=== PATIENT | male | born 1975 | race Caucasian/White ===

== ENCOUNTER 2016-09-12 12:15 | Inpatient (IN) ==
--- NOTE | 2016-09-12 12:34 | Emergency Department Note ---
Disposition Clinical Impression: Suicidal ideation Disposition: Admitted As Inpatient Referrals: NO,PCP [Non-Partnered Physician] - Forms: ED Satisfaction Letter Psych HPI - General Chief Complaint: ED Psychiatric Symptoms Stated Complaint: i am going to hurt myself Source: patient Mode of arrival: ambulatory Limitations: no limitations Nursing Notes Reviewed: Yes Vital Signs Reviewed: Yes - History of Present Illness Pt complaint: suicidal ideation, feels depressed Onset (ago): day(s) (2) Duration: constant History of similar episodes: Yes Improves with: none Worsens with: none Context: significant life stressor Alleged intoxication: No Associated Psychiatric Symptoms: depression, suicidal ideation, auditory hallucinations Associated symptoms: Denies: vomiting Traumatic symptoms: denies traumatic injury Treatments prior to arrival: none Self harm or harm to others: admits thoughts of self harm, other (took 4 klonopin 1mg this morning) - Related Data Previous Rx's Medication Instructions Recorded Hydrocodone/Acetaminophen [Maud 1 tab PO Q6H PRN #10 tab 12/10/14 10-325 Tablet] Allergies Allergy/AdvReac Type Severity Reaction Status Date / Time No Known Allergies Allergy Verified 12/10/14 11:30 All systems ED: reviewed and negative except as stated. Constitutional: Denies: fever, chills Psychiatric: Reports: depression, suicidal thoughts, auditory hallucinations Past Medical History - Past Medical History Source: patient, obtained from family, nursing notes reviewed Medical history: Reports: diabetes, hyperlipidemia, hypertension Surgical history: Reports: other Psychiatric history: Reports: anxiety, depression, prior suicide attempt - Social History Smoking Status: Never smoker Smokeless Tobacco Status: No Alcohol use: Reports: none Drug use: Reports: none Physical Exam - General Limitations: no limitations General appearance: anxious, other - Head Head exam: atraumatic, normocephalic, normal inspection - Eye Eye exam: Present: normal appearance, PERRL, EOMI - ENT ENT exam: normal exam, normal oropharynx, mucous membranes moist - Neck Neck exam: Present: normal inspection, full ROM, trachea midline - Chest Chest inspection: Present: normal inspection, symmetric chest wall rise - Respiratory Respiratory exam: Present: normal lung sounds bilaterally - Cardiovascular Cardiovascular exam: Present: regular rate, normal rhythm, normal heart sounds - Abdominal Exam Abdominal exam: Present: soft, Non-Tender. Absent: tenderness, distention, guarding, rebound, rigidity - Back Exam Back exam: Present: normal inspection, full ROM. Absent: tenderness - Psychiatric Psychiatric exam: Present: depressed, suicidal ideation Course Vital Signs Temperature 97.5 F L 09/12/16 12:16 Pulse Rate 159 09/12/16 12:16 Respiratory Rate 16 09/12/16 12:16 Blood Pressure 224/195 09/12/16 12:16 O2 Sat by Pulse Oximetry 96 09/12/16 12:16 Temperature 97.5 F L 09/12/16 12:16 Pulse Rate 159 09/12/16 12:16 Respiratory Rate 16 09/12/16 12:16 Blood Pressure 224/195 09/12/16 12:16 O2 Sat by Pulse Oximetry 96 09/12/16 12:16 Oxygen Delivery Oxygen Delivery Room Air Psych - Lab Data Result diagrams: 09/12/16 13:01 09/12/16 13:01 Lab Results 09/12/16 09/12/16 09/12/16 Range/Units 13:01 13:01 13:01 WBC 8.8 (4.3-11.1) K/mcL RBC 5.96 H (4.19-5.50) M/mcL Hgb 16.2 (12.9-16.9) g/dL Hct 48.2 (37.5-50.1) % MCV 80.9 L (83.0-100.0) fL MCH 27.2 L (28.0-33.3) pg MCHC 33.6 (31.6-35.5) g/dL RDW 12.1 (11.5-14.5) % Plt Count 267 (140-400) K/mcL MPV 10.3 (9.4-12.4) fL Immature Gran % 0.6 (0-4) % Seg Neutrophils % 73.1 % Lymphocytes % 17.2 % Monocytes % 8.4 % Eosinophils % 0.0 % Basophils % 0.7 % Neutrophils # 6.4 (1.6-8.9) K/mcL Lymphocytes # 1.5 (0.6-4.6) K/mcL Monocytes # 0.7 (0.0-1.3) K/mcL Eosinophils # 0.0 (0.0-0.6) K/mcL Basophils # 0.1 (0.0-0.2) K/mcL Sodium 139 (136-145) mEq/L Potassium 4.0 (3.5-4.5) mEq/L Chloride 102 (98-109) mEq/L Carbon Dioxide 23 (19-29) mEq/L BUN 19 (8-26) mg/dL Creatinine 1.17 (0.72-1.25) mg/dL Est GFR ( Amer) > 60 (> 60) Est GFR (Non-Af Amer) > 60 (> 60) BUN/Creatinine Ratio 16 (6-26) Glucose 266 H (70-99) mg/dL Est Mean Plasma Glucose 217 mg/dl Hemoglobin A1c 9.2 H ( - 5.6) % Calculated Osmolality 300 (280-300) Calcium 9.9 (8.6-10.8) mg/dL TSH 1.022 (0.350-4.840) mcIU/mL Urine Color (Yellow) Urine Clarity (Clear) Urine pH (5.0-8.0) pH Units Ur Specific [place] (1.010-1.025) Urine Protein (Neg-Trace) mg/dL Urine Glucose (UA) (Normal) mg/dL Urine Ketones (Negative) mg/dL Urine Blood (Negative) Urine Nitrite (Negative) Urine Bilirubin (Negative) Urine Urobilinogen (Normal) mg/dL Ur Leukocyte Esterase (Negative) Urine Microscopic RBC (0-3) per hpf Urine Microscopic WBC (0-3) per hpf Ur Squamous Epith Cells (None-Few) per lpf Urine Bacteria (None-Few) per hpf Hyaline Casts (None-Few) per lpf Salicylates < 5.0 L (15-30) mg/dL Urine Opiates Screen (Ktpmtb=632) ng/mL Acetaminophen < 1.0 L (10-30) mcg/mL Ur Barbiturates Screen (Sixhjs=904) ng/mL Ur Phencyclidine Scrn (Cutoff=25) ng/mL Ur Amphetamines Screen (Mdskef=2162) ng/mL U Benzodiazepines Scrn (Rnptjf=070) ng/mL Urine Cocaine Screen (Cutoff= 300) ng/mL U Marijuana (THC) Screen (Cutoff = 50) ng/mL Ethyl Alcohol < 10 (0-10) mg/dL 09/12/16 09/12/16 Range/Units 13:10 13:10 WBC (4.3-11.1) K/mcL RBC (4.19-5.50) M/mcL Hgb (12.9-16.9) g/dL Hct (37.5-50.1) % MCV (83.0-100.0) fL MCH (28.0-33.3) pg MCHC (31.6-35.5) g/dL RDW (11.5-14.5) % Plt Count (140-400) K/mcL MPV (9.4-12.4) fL Immature Gran % (0-4) % Seg Neutrophils % % Lymphocytes % % Monocytes % % Eosinophils % % Basophils % % Neutrophils # (1.6-8.9) K/mcL Lymphocytes # (0.6-4.6) K/mcL Monocytes # (0.0-1.3) K/mcL Eosinophils # (0.0-0.6) K/mcL Basophils # (0.0-0.2) K/mcL Sodium (136-145) mEq/L Potassium (3.5-4.5) mEq/L Chloride (98-109) mEq/L Carbon Dioxide (19-29) mEq/L BUN (8-26) mg/dL Creatinine (0.72-1.25) mg/dL Est GFR ( Amer) (> 60) Est GFR (Non-Af Amer) (> 60) BUN/Creatinine Ratio (6-26) Glucose (70-99) mg/dL Est Mean Plasma Glucose mg/dl Hemoglobin A1c ( - 5.6) % Calculated Osmolality (280-300) Calcium (8.6-10.8) mg/dL TSH (0.350-4.840) mcIU/mL Urine Color Yellow (Yellow) Urine Clarity Clear (Clear) Urine pH 5.5 (5.0-8.0) pH Units Ur Specific [place] > 1.030 H (1.010-1.025) Urine Protein Trace (Neg-Trace) mg/dL Urine Glucose (UA) >=1000 H (Normal) mg/dL Urine Ketones 80 H (Negative) mg/dL Urine Blood Negative (Negative) Urine Nitrite Negative (Negative) Urine Bilirubin Negative (Negative) Urine Urobilinogen Normal (Normal) mg/dL Ur Leukocyte Esterase Negative (Negative) Urine Microscopic RBC 0-3 (0-3) per hpf Urine Microscopic WBC 0-3 (0-3) per hpf Ur Squamous Epith Cells Few (None-Few) per lpf Urine Bacteria None Seen (None-Few) per hpf Hyaline Casts None Seen (None-Few) per lpf Salicylates (15-30) mg/dL Urine Opiates Screen Negative (Zpigmm=403) ng/mL Acetaminophen (10-30) mcg/mL Ur Barbiturates Screen Negative (Kqmkgf=899) ng/mL Ur Phencyclidine Scrn Negative (Cutoff=25) ng/mL Ur Amphetamines Screen Negative (Ncatrr=9978) ng/mL U Benzodiazepines Scrn Positive H (Caenaj=728) ng/mL Urine Cocaine Screen Negative (Cutoff= 300) ng/mL U Marijuana (THC) Screen Negative (Cutoff = 50) ng/mL Ethyl Alcohol (0-10) mg/dL Psychiatric Medical Clearance - Medical Clearance Checklist Medical History: No Social History Section defined Current Vitals: Last Vital Signs Temp 97.5 F L 09/12/16 12:16 Pulse 159 09/12/16 12:16 Resp 16 09/12/16 12:16 BP 224/195 09/12/16 12:16 Pulse Ox 96 09/12/16 12:16 Psychiatric Lab Panel: Drug Levels and Toxicity 09/12/16 09/12/16 13:01 13:10 Urine Opiates Screen Negative Acetaminophen < 1.0 L Ur Barbiturates Screen Negative Ur Phencyclidine Scrn Negative Ur Amphetamines Screen Negative U Benzodiazepines Scrn Positive H Urine Cocaine Screen Negative U Marijuana (THC) Screen Negative Ethyl Alcohol < 10 Abnormal Labs: Abnormal lab results RBC 5.96 M/mcL (4.19-5.50) H 09/12/16 13:01 MCV 80.9 fL (83.0-100.0) L 09/12/16 13:01 MCH 27.2 pg (28.0-33.3) L 09/12/16 13:01 Glucose 266 mg/dL (70-99) H 09/12/16 13:01 Hemoglobin A1c 9.2 % (-5.6) H 09/12/16 13:01 Ur Specific [place] > 1.030 (1.010-1.025) H 09/12/16 13:10 Urine Glucose (UA) >=1000 mg/dL (Normal) H 09/12/16 13:10 Urine Ketones 80 mg/dL (Negative) H 09/12/16 13:10 Salicylates < 5.0 mg/dL (15-30) L 09/12/16 13:01 Acetaminophen < 1.0 mcg/mL (10-30) L 09/12/16 13:01 U Benzodiazepines Scrn Positive ng/mL (Syzhhh=517) H 09/12/16 13:10 Statement of Medical Clearance: I have evaluated the patient, reviewed diagnostic information, and certify that the patient's medical condition is sufficiently stable that transfer to the psychiatric unit does not pose a significant risk of deterioration.
[2016-09-12 13:19] LABS: Basophils # 0.1 K/mcL (0.0-0.2); Basophils % 0.7 %; Hematocrit 48.2 % (37.5-50.1); Hemoglobin 16.2 g/dL (12.9-16.9); Immature Granulocytes % 0.6 % (0-4); Lymphocytes # 1.5 K/mcL (0.6-4.6); Lymphocytes % 17.2 %; Mean Corpuscular HGB Conc 33.6 g/dL (31.6-35.5); Mean Corpuscular Hemoglobin 27.2 pg (28.0-33.3); Mean Corpuscular Volume 80.9 fL (83.0-100.0); Mean Platelet Volume 10.3 fL (9.4-12.4); Monocytes # 0.7 K/mcL (0.0-1.3); Monocytes % 8.4 %; Neutrophils # 6.4 K/mcL (1.6-8.9); Platelet Count 267 K/mcL (140-400); Red Blood Count 5.96 M/mcL (4.19-5.50); Red Cell Distribution Width 12.1 % (11.5-14.5); Segmented Neutrophils % 73.1 %
[2016-09-12 13:27] LABS: Bilirubin,Urine Negative (Negative); Blood,Urine Negative (Negative); Clarity,Urine Clear (Clear); Color,Urine Yellow (Yellow); Glucose,Urine (UA) >=1000 mg/dL (Normal); Ketones,Urine 80 mg/dL (Negative); Leukocyte Esterase,Urine Negative (Negative); Nitrite,Urine Negative (Negative); PH,Urine 5.5 pH Units (5.0-8.0); Protein,Urine Trace mg/dL (Neg-Trace); Specific Gravity,Urine > 1.030 (1.010-1.025); Urobilinogen,Urine Normal (Normal)
[2016-09-12 13:29] LABS: Bacteria,Urine None Seen per hpf (None-Few); Hyaline Casts,Urine None Seen per lpf (None-Few); RBC,Urine 0-3 per hpf (0-3); Squamous Epithelial Cell,Urine Few per lpf (None-Few); WBC,Urine 0-3 per hpf (0-3)
[2016-09-12 13:33] LABS: Amphetamine Screen,Urine Negative ng/mL (Cutoff=1000); Barbiturate Screen,Urine Negative ng/mL (Cutoff=200); Benzodiazepines Screen,Urine Positive ng/mL (Cutoff=200); Cannabinoid Screen,Urine Negative ng/mL (Cutoff = 50); Cocaine Screen,Urine Negative ng/mL (Cutoff= 300); Opiate Screen,Urine Negative ng/mL (Cutoff=300); Phencyclidine Screen,Urine Negative ng/mL (Cutoff=25)
[2016-09-12 13:35] LABS: BUN/Creatinine Ratio 16 (6-26); Blood Urea Nitrogen 19 mg/dL (8-26); Calcium 9.9 mg/dL (8.6-10.8); Carbon Dioxide 23 mEq/L (19-29); Chloride 102 mEq/L (98-109); Glucose 266 mg/dL (70-99); Osmolality,Calculated 300 (280-300); Sodium 139 mEq/L (136-145); eGFR For African Americans > 60 (> 60); eGFR For Non-African Americans > 60 (> 60)
[2016-09-12 13:37] LABS: Acetaminophen < 1.0 mcg/mL (10-30); Ethanol < 10 mg/dL (0-10); Salicylate < 5.0 mg/dL (15-30)
[2016-09-12 13:55] LABS: Hemoglobin A1C 9.2 %; Thyroid Stimulating Hormone 1.022 mcIU/mL (0.350-4.840)
[2016-09-12] MEDS ORDERED: Haloperidol Lactate 5 MG/ML VIAL IM PRN (18:11)
[2016-09-12] MEDS ORDERED: Acetaminophen 325 MG TABLET PO PRN (18:11)
[2016-09-12] MEDS ORDERED: hydrOXYzine pamoate 25 MG CAPSULE PO PRN (18:11)
[2016-09-12] MEDS ORDERED: Mag Hydrox/Al Hydrox/Simeth 30 ML UDC PO PRN (18:11)
[2016-09-12] MEDS ORDERED: MOM Conc 10 ML UD.LIQ PO PRN (18:11)
[2016-09-12] MEDS ORDERED: *HR* LORazepam 2 MG/ML VIAL IM PRN (18:11)
[2016-09-12] MEDS ORDERED: traZODone 50 MG TABLET PO PRN (18:11)
[2016-09-12] MEDS ORDERED: *HR* LORazepam 1 MG TABLET PO PRN (18:11)
[2016-09-12] MEDS ORDERED: D5% in Water 1,000 ML IVC PRN (19:11)
[2016-09-12] MEDS ORDERED: Dextrose Gel 15 GM PO PRN ×2 (19:11)
[2016-09-12] MEDS ORDERED: *HR* Dextrose 50 % in Water (Syg) 50 ML SYRINGE IVP PRN (19:11)
[2016-09-12] MEDS: Gabapentin 300 MG CAPSULE PO SCH (20:57)
[2016-09-12] MEDS: Insulin DETEMIR 100 UNIT/ML X5UNITS SQ SCH (22:21)
[2016-09-13] MEDS: Diclofenac Sodium (24 HR) 100 MG TABLET PO SCH (08:24)
[2016-09-13] MEDS: Aspirin Enteric Coated 81 MG Tablet PO SCH (08:24)
[2016-09-13] MEDS: Gabapentin 300 MG CAPSULE PO SCH ×3 (08:25→21:50)
[2016-09-13] MEDS: Insulin LISPRO 300 UNITS/3 ML VIAL SQ SCH ×3 (08:26→16:56)
--- NOTE | 2016-09-13 12:28 | Psychiatry History & Physical ---
Date of Encounter: 09/13/16 Time of Encounter: 11:00 History of Present Illness Patient Stated Chief Complaint: Suicidal and homicidal Medicare Admission Attestation: For traditional Medicare patients the provided hospital inpatient services are reasonable and necessary and in the case of services not specified as inpatient -only under 42 CFR 419.22 (n), that they are appropriately provided as inpatient services in accordance 42 CFR 412.3. For Critical Access Hospital the patient may reasonably be expected to be discharged or transferred to a hospital within 96 hours after admission to the Critical [facility]. Admitted From: Emergency Dept History of Present Illness: Mr. Chang is a 40 year old male admitted from the emergency department on a pink slip for evaluation of suicidal or homicidal ideation. This is a first psychiatric admission for this patient will report no past psychiatric history of treatment. Patient is dealing with family issues and legal issues and he was uncooperative in giving details or answering questions but he insisted that he is decided to kill himself but would not elaborate on his plan. Patient had one visits for psychiatric evaluation by Dr. Perez as an outpatient on 2015. due to diagnosed him with recurrent major depression and anxiety, patient refused to be given antidepressant medication. In the emergency department the nursing staff advises the patient on the procedure for admission on a pink slip and he was insisting that he is going to kill himself if he was discharged. Past Med Surg Social Fam HX - Past Medical History Medical history: diabetes, hyperlipidemia, hypertension - Past Psychiatric History Psychiatric history: Reports: no psych history - Past Surgical History Surgical History: other - Social History Smoking Status: Never smoker Smokeless Tobacco Status: No Alcohol use: none Drug use: none Medications & Allergies Aspirin Enteric Coated [Aspirin EC] 81 mg PO DAILY 09/12/16 [History] Gabapentin [Neurontin] 300 mg PO TID 09/12/16 [History] Insulin Glargine,Hum.rec.anlog [Lantus Solostar] 26 unit SQ HS 09/12/16 [History ] Insulin Lispro Protamin/Lispro [Humalog Mix 50-50 Kwikpen] 8 unit SQ 0800,1200 MDD Breakfast & Lunch 09/12/16 [History] Lisinopril [Zestril] 5 mg PO DAILY 09/12/16 [History] Oxaprozin [Daypro] 600 mg PO BID 09/12/16 [History] Pravastatin Sodium [Pravachol] 80 mg PO HS 09/12/16 [History] Tramadol HCl [Ultram] 50 - 100 mg PO TID PRN 09/12/16 [History] Allergies No Known Allergies Allergy (Verified 12/10/14 11:30) Review of Systems Psychiatric: Reports: anxiety, suicidal ideation, homicidal ideation, irritability Mental Status Exam Patient orientation: Yes Person, Yes Time, Yes Place Level of alertness: Alert Patient appearance: Appropriate, Well Groomed Behavior: calm, tearful, agitated, hostile, uncooperative, suspicious Psychomotor activity: Increased Eye contact: Minimal Contact Mood description: Angry, Labile, Irritable Affect description: congruent with mood, labile Speech pattern: Normal rate, Normal rhythm, Normal tone Speech volume: Normal Thought process: Linear, Goal Oriented, Thought Blocking Thought content: Yes Suicidal ideation, Yes Homicidal ideation, No Overt delusions Perceptual disturbances: Yes Auditory hallucinations, No Visual hallucinations Attention span: Capable of Focused Attention Memory description: Grossly Intact Patient reliability: Questionable Historian Intelligence estimate: Average Judgment: Limited Insight: Partial Results - Vital Signs Vital signs: Temp Pulse Resp BP Pulse Ox 97.5 F L 94 20 133/91 96 09/13/16 09:00 09/13/16 09:00 09/13/16 09:00 09/13/16 09:00 09/12/16 12:16 - Labs Labs: Laboratory Last Values WBC 8.8 K/mcL (4.3-11.1) 09/12/16 13:01 RBC 5.96 M/mcL (4.19-5.50) H 09/12/16 13:01 Hgb 16.2 g/dL (12.9-16.9) 09/12/16 13:01 Hct 48.2 % (37.5-50.1) 09/12/16 13:01 MCV 80.9 fL (83.0-100.0) L 09/12/16 13:01 MCH 27.2 pg (28.0-33.3) L 09/12/16 13:01 MCHC 33.6 g/dL (31.6-35.5) 09/12/16 13:01 RDW 12.1 % (11.5-14.5) 09/12/16 13:01 Plt Count 267 K/mcL (140-400) 09/12/16 13:01 MPV 10.3 fL (9.4-12.4) 09/12/16 13:01 Immature Gran % 0.6 % (0-4) 09/12/16 13:01 Seg Neutrophils % 73.1 % 09/12/16 13:01 Lymphocytes % 17.2 % 09/12/16 13:01 Monocytes % 8.4 % 09/12/16 13:01 Eosinophils % 0.0 % 09/12/16 13:01 Basophils % 0.7 % 09/12/16 13:01 Neutrophils # 6.4 K/mcL (1.6-8.9) 09/12/16 13:01 Lymphocytes # 1.5 K/mcL (0.6-4.6) 09/12/16 13:01 Monocytes # 0.7 K/mcL (0.0-1.3) 09/12/16 13:01 Eosinophils # 0.0 K/mcL (0.0-0.6) 09/12/16 13:01 Basophils # 0.1 K/mcL (0.0-0.2) 09/12/16 13:01 Sodium 139 mEq/L (136-145) 09/12/16 13:01 Potassium 4.0 mEq/L (3.5-4.5) 09/12/16 13:01 Chloride 102 mEq/L (98-109) 09/12/16 13:01 Carbon Dioxide 23 mEq/L (19-29) 09/12/16 13:01 BUN 19 mg/dL (8-26) 09/12/16 13:01 Creatinine 1.17 mg/dL (0.72-1.25) 09/12/16 13:01 Est GFR ( Amer) > 60 (> 60) 09/12/16 13:01 Est GFR (Non-Af Amer) > 60 (> 60) 09/12/16 13:01 BUN/Creatinine Ratio 16 (6-26) 09/12/16 13:01 Glucose 266 mg/dL (70-99) H 09/12/16 13:01 POC Glucose 284 (58-89) H 09/13/16 11:29 Est Mean Plasma Glucose 217 mg/dl 09/12/16 13:01 Hemoglobin A1c 9.2 % (-5.6) H 09/12/16 13:01 Calculated Osmolality 300 (280-300) 09/12/16 13:01 Calcium 9.9 mg/dL (8.6-10.8) 09/12/16 13:01 TSH 1.022 mcIU/mL (0.350-4.840) 09/12/16 13:01 Urine Color Yellow (Yellow) 09/12/16 13:10 Urine Clarity Clear (Clear) 09/12/16 13:10 Urine pH 5.5 pH Units (5.0-8.0) 09/12/16 13:10 Ur Specific [place] > 1.030 (1.010-1.025) H 09/12/16 13:10 Urine Protein Trace mg/dL (Neg-Trace) 09/12/16 13:10 Urine Glucose (UA) >=1000 mg/dL (Normal) H 09/12/16 13:10 Urine Ketones 80 mg/dL (Negative) H 09/12/16 13:10 Urine Blood Negative (Negative) 09/12/16 13:10 Urine Nitrite Negative (Negative) 09/12/16 13:10 Urine Bilirubin Negative (Negative) 09/12/16 13:10 Urine Urobilinogen Normal mg/dL (Normal) 09/12/16 13:10 Ur Leukocyte Esterase Negative (Negative) 09/12/16 13:10 Urine Microscopic RBC 0-3 per hpf (0-3) 09/12/16 13:10 Urine Microscopic WBC 0-3 per hpf (0-3) 09/12/16 13:10 Ur Squamous Epith Cells Few per lpf (None-Few) 09/12/16 13:10 Urine Bacteria None Seen per hpf (None-Few) 09/12/16 13:10 Hyaline Casts None Seen per lpf (None-Few) 09/12/16 13:10 Salicylates < 5.0 mg/dL (15-30) L 09/12/16 13:01 Urine Opiates Screen Negative ng/mL (Zdsebj=786) 09/12/16 13:10 Acetaminophen < 1.0 mcg/mL (10-30) L 09/12/16 13:01 Ur Barbiturates Screen Negative ng/mL (Nzfeht=119) 09/12/16 13:10 Ur Phencyclidine Scrn Negative ng/mL (Cutoff=25) 09/12/16 13:10 Ur Amphetamines Screen Negative ng/mL (Hufmen=0114) 09/12/16 13:10 U Benzodiazepines Scrn Positive ng/mL (Uvqowx=603) H 09/12/16 13:10 Urine Cocaine Screen Negative ng/mL (Cutoff= 300) 09/12/16 13:10 U Marijuana (THC) Screen Negative ng/mL (Cutoff = 50) 09/12/16 13:10 Ethyl Alcohol < 10 mg/dL (0-10) 09/12/16 13:01 Assessment and Plan (1) Suicidal ideation Current visit: Yes Status: Acute Plan: Admit inpatient for safety and stabilization, Close observation, Suicide Precautions per unit protocol, Encourage participation in unit milieu, Group Therapy, Monitor sleep, Monitor appetite Additional Plan: Patient declined treatment with antidepressant medication at this time he will be maintained on when necessary medication until further discussion. Risks, benefits, side effects, alternatives discussed w/pt: Yes Patient agreeable to treatment: No
[2016-09-13] MEDS: Insulin DETEMIR 100 UNIT/ML X5UNITS SQ SCH (21:47)
[2016-09-14] MEDS: Diclofenac Sodium (24 HR) 100 MG TABLET PO SCH (08:10)
[2016-09-14] MEDS: Aspirin Enteric Coated 81 MG Tablet PO SCH (08:10)
[2016-09-14] MEDS: Gabapentin 300 MG CAPSULE PO SCH (08:11)
[2016-09-14] MEDS: Insulin LISPRO 300 UNITS/3 ML VIAL SQ SCH ×2 (08:12→11:57)
[2016-09-14 10:33] VITALS: BP 118/88
--- NOTE | 2016-09-14 13:03 | Discharge Summary ---
Date of Encounter: 09/14/16 Time of Encounter: 12:58 Diagnosis - Discharge Diagnosis (1) Suicidal ideation Status: Acute Medications - Discharge Medications Aspirin Enteric Coated [Aspirin EC] 81 mg PO DAILY 09/12/16 [History] Gabapentin [Neurontin] 300 mg PO TID 09/12/16 [History] Insulin Glargine,Hum.rec.anlog [Lantus Solostar] 26 unit SQ HS 09/12/16 [History ] Insulin Lispro Protamin/Lispro [Humalog Mix 50-50 Kwikpen] 8 unit SQ 0800,1200 MDD Breakfast & Lunch 09/12/16 [History] Lisinopril [Zestril] 5 mg PO DAILY 09/12/16 [History] Oxaprozin [Daypro] 600 mg PO BID 09/12/16 [History] Pravastatin Sodium [Pravachol] 80 mg PO HS 09/12/16 [History] Tramadol HCl [Ultram] 50 - 100 mg PO TID PRN 09/12/16 [History] Allergies No Known Allergies Allergy (Verified 12/10/14 11:30) Provider Date of admission: 09/12/16 15:46 Primary care physician: PCP NO Discharging clinician: Sarahy Das Assessment and Plan - Patient/Caregiver Discharge Instructions Activity: resume usual activities as tolerated Diet: diabetic diet - Follow up Plan Follow up with: [facility] [Outside] - 09/24/16 11:00 am (The above appointment is with psychiatric provider, Alpesh Coreas. Please arrive 30 minutes early for this appointment to complete paperwork. This is the first available appointment. You may contact the office regularly to check for cancellations that may allow you to be seen sooner. Office staff will contact you directly to schedule your intake appointment for counseling/case management services. ) Functional capacity at discharge: independent ambulation Overall status at discharge: Stable Disposition: Home, Self-Care Hospital Course Hospital course: Mr. Chang is a 40 year old male who was admitted secondary to SI. Reports today he has "anxiety issues" and that he became overwhelmed because "I found out I was under investigation for something horrendous." However, he reports he is now feeling better secondary to reconnecting with his jackeline. 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 Lost jackeline at that time. However, visited by branch office manager and praying with peers since being admitted here and now feels reconnected and supported. Also visited by and brother and feels family support is strong. No longer endorsing SI. Not on any medications. Initially opposed to medications for religion reasons but reports being here has opened his eyes to the fact that he can be religion and mentally ill at the same time. Open to the idea of medications if they are recommended to him at time of outpatient assessment. No longer meeting inpatient criteria and client wants discharged home. Social work has already spoken with family and all of his aftercare plans have been arranged. Not a good idea to start medications at time of discharge. Client has a plan if SI returns-will pray and contact branch office manager. Does not feel he is at risk for return of SI given that stressors are being handled. However, he is willing to follow up as an outpatient as he recognizes long standing anxiety issues need addressed. - Time Spent with Patient Total time spent providing and/or coordinating discharge services: Quality - Multiple Antipsychotics Patient discharged on 2 or more antipsychotic medications: No Procedures - Procedures Procedures: Crisis Stabilization, Supportive Therapy, Group Therapy Mental Status Exam - Mental Status Exam Patient orientation: Yes Person, Yes Time, Yes Place Level of alertness: Alert Patient appearance: Appropriate, Well Groomed Behavior: calm, cooperative Psychomotor activity: Normal Eye contact: Maintains Eye Contact Mood description: Euthymic/stable Affect description: congruent with mood Speech pattern: Normal rate, Normal rhythm, Normal tone Speech Volume: Normal Thought process: Linear, Goal Oriented Thought Content: No Suicidal ideation, No Homicidal ideation, No Overt delusions Perceptual Disturbances: No Auditory hallucinations, No Visual hallucinations Judgment: Fair Insight: Partial
== END 2016-09-14 13:35 | disposition home or self-care (01) | DRG 754 ==
LOC: EMEROO 12:15 → 1ANU 15:46 → SUATTDRO 15:46 → 1ANU 15:50
PROVIDERS: ADMIT Psychiatry & Neurology Psychiatry; ATTEND Psychiatry & Neurology Psychiatry